=== PATIENT | male | born 2000 | race Caucasian/White ===

== ENCOUNTER 2020-08-12 03:17 | Emergency (ER) | payer BC | END 2020-08-12 10:00 | disposition home or self-care (01) | LOC: ERS 03:17 | DX: F10.129 Alcohol abuse with intoxication, unspecified (principal); Y90.7 Blood alcohol level of 200-239 mg/100 ml; F17.210 Nicotine dependence, cigarettes, uncomplicated | CPT/HCPCS: 36415; 36416; 80307; 99285 ==